=== PATIENT | male | born 1990 | race Two or more races ===

== ENCOUNTER 2018-06-01 07:40 | Emergency (ER) | payer SELFPAY ==
[2018-06-01] MEDS ORDERED: Proparacaine 0.5% Ophth Soln 15 ML Bottle EYEBOTH STA (07:56)
[2018-06-01] MEDS ORDERED: Fluorescein 0.6 MG Ophth Strip EYEBOTH ONE (07:58)
[2018-06-01] MEDS ORDERED: Erythromycin Base 0.5% Ophth Oint 1 GM Tube EYEBOTH ONE (08:15)
--- NOTE | 2018-06-01 08:24 | EDM.PDOC ---
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 He states that he woke with bilateral eye pain around 07:00 this morning. He states that his eyes just burn, and he has photophobia, but he denies having a foreign body sensation. He is unable to say whether or not he has blurry vision or other visual changes, because it is too painful for him to open his eyes. No prior similar symptoms. The patient does not have a PCP. Bilateral Eye Pain Score (Numeric/FACES): 10 - Related Data Allergies Allergy/AdvReac Type Severity Reaction Status Date / Time No Known Allergies Allergy Verified 06/01/18 07:54 Home Meds: Home Meds Ketorolac [Acular 0.5% Ophth Soln] 1 drop EYEBOTH Q6H PRN #1 bottle 06/01/18 [Rx ] Past Medical History - Past Health History Medical/Surgical History: Denies Medical/Surgical History Social & Family History - Tobacco Use Smoking Status *Q: Current Every Day Smoker Years of Tobacco use: 12 Packs/Tins Daily: 1 - Caffeine Use Caffeine Use: Reports: None - Alcohol Use Alcohol Use History: Yes Alcohol Use Frequency: Socially - Recreational Drug Use Recreational Drug Use: Yes Drug Use in Last 12 Months: Yes Recreational Drug Type: Reports: Marijuana/Hashish (last smoked around September 2017) - Living Situation & Occupation Living situation: Reports: Single, with Significant Other (Fiance) Occupation: Employed (Sandblasting and welding) ED ROS GENERAL - Review of Systems Review Of Systems: ROS reveals no pertinent complaints other than HPI. ED EXAM GENERAL W FULL EYE - Physical Exam Exam: See Below Exam Limited By: No Limitations General Appearance: Alert, WD/WN, Mild Distress (Covering eyes) Eyelids: Bilateral: Normal Appearance Conjunctiva & Sclera: Bilateral: Injected Cornea Exam: Bilateral: Normal Appearance (Examined with proparacaine and fluorescein) Extraocular Movements: Bilateral: Intact Pupils: Normal Accommodation Pupillary Size: Bilateral: 5 mm Pupillary Reaction: Bilateral: Brisk Anterior Chamber: Bilateral: Normal Appearance Course - Vital Signs Last Recorded V/S: Last Vital Signs Temp 36.6 C 06/01/18 07:52 Pulse 74 06/01/18 07:52 Resp 16 06/01/18 07:52 BP 117/78 06/01/18 07:52 Pulse Ox 98 06/01/18 07:52 - Orders/Labs/Meds Meds: Medications Discontinued Medications Generic Name Dose Route Start Last Admin Trade Name Char PRN Reason Stop Dose Admin Fluorescein Sodium 0.6 mg 06/01/18 07:58 Ful-Catherine EYEBOTH 06/01/18 07:59 ONETIME ONE Proparacaine HCl 1 ml 06/01/18 07:56 Proparacaine 0.5% Ophth Soln EYEBOTH 06/01/18 07:57 ONETIME STA - Re-Assessments/Exams Free Text/Narrative Re-Assessment/Exam: 06/01/18 08:14 The patient was examined with proparacaine and fluorescein to both eyes. He appears to have bilateral photokeratitis. No corneal abrasions were seen, and no foreign bodies were found. Marianne RN will place some erythromycin ointment into both of his eyes and show him how to do it, then give him the tube to take home. I will prescribe Acular. I will write a note for the patient to be off this weekend, with the expectation that he will be better by 06/04/2018. If he is not, I would like him to follow-up with an eye doctor. Departure - Departure Time of Disposition: 08:17 Disposition: Home, Self-Care 01 Condition: Fair Clinical Impression: Photokeratitis of both eyes - Discharge Information *PRESCRIPTION DRUG MONITORING PROGRAM REVIEWED*: Not Applicable *COPY OF PRESCRIPTION DRUG MONITORING REPORT IN PATIENT BEV: Not Applicable Referrals: PCP,None [Primary Care Provider] - Forms: ED Department Discharge, ED Return to Work/School Form Additional Instructions: You were seen in the emergency room for pain to both of your eyes after welding and sandblasting last night without eye protection. Based on your history and physical examination, you are suffering from bilateral photokeratitis = a sunburn to both of your eyes. As discussed, we cannot "un-burn" your eyes - they will have to heal on their own, however, we can help to relieve the eye pain. You were shown how to instill erythromycin ointment into your eyes. Apply about a 1 cm strip of ointment inside your lower eyelids 3 to 4 times a day, for the next couple of days. A prescription for the eye-pain medicine Acular has been sent to the [facility], located in the [facility] grocery store. Instill 1 drop of Acular into each of your eyes every 6 hours, as prescribed. Try to remain in the dark. If you need to go outside, wear sunglasses. Do not patch your eyes. A note to be off work until 06/04/2018, has been provided to you. If you still have eye pain by 06/04/2018, please follow-up with an eye doctor. If any other problems, please do not hesitate to return to the ER.
== END 2018-06-01 08:45 | disposition home or self-care (01) ==
LOC: JD.ED 07:40
DX: H16.133 Photokeratitis, bilateral (principal); F17.210 Nicotine dependence, cigarettes, uncomplicated
CPT/HCPCS: 99283; A9270